=== PATIENT | female | born 1985 | race Caucasian/White ===

== ENCOUNTER 2020-12-13 15:43 | Emergency (ER) | payer OTHER ==
[2020-12-13 17:01] LABS: BASOPHIL 0.2 % (0-2); EOSINOPHIL 0.9 % (0-5); HCT 34.6 % (37.0-47.0); HGB 11.4 g/dl (12.5-16.0); LYMPHOCYTE 17.9 % (15-48); MCH 28.5 pg (25.0-31.0); MCHC 32.9 g/dL (32.0-36.0); MCV 86.5 fL (78.0-100.0); MONOCYTE 5.8 % (0-12); MPV 11.3 fL (6.0-9.5); NEUTROPHIL 72.8 % (41-80); NRBC 0; PLT 166 K/uL (150-400); RDW 13.9 % (11.5-14.0); WBC 10.1 K/uL (4.0-10.5)
[2020-12-13 17:31] LABS: ALBUMIN 2.7 g/dL (3.4-5.0); BILIRUBIN - TOTAL 0.5 mg/dL (0.2-1.0); BUN/CREAT RATIO (CALC) 32.5 RATIO; CREATININE 0.4 mg/dL (0.51-0.95); GLOBULIN (CALCULATION) 3.3 g/dL; POTASSIUM 3.5 mmol/L (3.5-5.1)
[2020-12-13 18:57] LABS: BILIRUBIN NEGATIVE (NEGATIVE); BLOOD NEGATIVE Ery/uL (NEGATIVE); CLARITY CLEAR (CLEAR); COLOR YELLOW (YELLOW); GLUCOSE (U) NORMAL (NORMAL); LEUKOCYTES NEGATIVE Leu/uL (NEGATIVE); NITRITE NEGATIVE (NEGATIVE); PROTEIN NEGATIVE (NEGATIVE); SPECIFIC GRAVITY 1.015 (1.001-1.030); UROBILINOGEN 0.2 mg/dL (0.2-1.0)
[2020-12-13] MEDS ORDERED: FLEXERIL5 MG PO (19:33)
== END 2020-12-13 19:50 | disposition home or self-care (01) ==
LOC: FER 15:43
PROVIDERS: Radiology Radiation Oncology
DX: O99.893 Other specified diseases and conditions complicating puerperium (principal); M54.2 Cervicalgia; M54.9 Dorsalgia, unspecified; O24.419 Gestational diabetes mellitus in pregnancy, unspecified control; Z3A.32 32 weeks gestation of pregnancy; V49.9XXA Car occupant (driver) (passenger) injured in unspecified traffic accident, initial encounter; Y92.410 Unspecified street and highway as the place of occurrence of the external cause
CPT/HCPCS: 36415; 71045; 80053; 81003; 83690; 85025; 86900; 86901

== ENCOUNTER 2021-01-20 08:12 | Inpatient (IN) | payer OTHER ==
[~2021-01-20] VITALS: Ht 165.1 cm; Wt 70.3 kg
[~2021-01-20 08:12] MED LIST: FLEXERIL5 MG PO
[2021-01-20 08:57] LABS: BILIRUBIN NEGATIVE (NEGATIVE); BLOOD 3+ Ery/uL (NEGATIVE); CLARITY CLEAR (CLEAR); COLOR YELLOW (YELLOW); GLUCOSE (U) NORMAL (NORMAL); LEUKOCYTES TRACE Leu/uL (NEGATIVE); NITRITE NEGATIVE (NEGATIVE); PROTEIN TRACE (LOW) mg/dL (NEGATIVE); SPECIFIC GRAVITY >=1.030 (1.001-1.030); UROBILINOGEN 0.2 mg/dL (0.2-1.0)
[2021-01-20 09:11] LABS: URINARY RBC TNTC
[2021-01-20 09:12] LABS: BACTERIA TRACE; URINARY WBC RARE
[2021-01-20 09:38] LABS: HCT 35.7 % (37.0-47.0); HGB 11.9 g/dl (12.5-16.0); MCH 29.2 pg (25.0-31.0); MCHC 33.3 g/dL (32.0-36.0); MCV 87.5 fL (78.0-100.0); MPV 11.6 fL (6.0-9.5); RBC 4.08 M/uL (4.20-5.40); WBC 10.4 K/uL (4.0-10.5)
[2021-01-20 09:56] LABS: ALBUMIN 2.5 g/dL (3.4-5.0); BILIRUBIN - TOTAL 0.7 mg/dL (0.2-1.0); BUN/CREAT RATIO (CALC) 22.7 RATIO; CREATININE 0.44 mg/dL (0.51-0.95); GLOBULIN (CALCULATION) 3.3 g/dL; POTASSIUM 3.8 mmol/L (3.5-5.1); TOTAL PROTEIN 5.8 g/dL (6.4-8.2)
[2021-01-22 05:37] LABS: HCT 27.2 % (37.0-47.0); MCH 29.6 pg (25.0-31.0); MCHC 33.1 g/dL (32.0-36.0); MCV 89.5 fL (78.0-100.0); MPV 10.8 fL (6.0-9.5); RBC 3.04 M/uL (4.20-5.40); RDW 15.2 % (11.5-14.0); WBC 8.4 K/uL (4.0-10.5)
== END 2021-01-23 13:20 | disposition home or self-care (01) | DRG 805 ==
LOC: FOD 08:12 → FOB 08:13 → FOD 09:25 → FOB 09:26
PROVIDERS: ADMIT Obstetrics & Gynecology
PROC: 10E0XZZ Delivery of Products of Conception, External Approach (ICD-10-PCS; principal; 2021-01-21)
DX: O42.013 Preterm premature rupture of membranes, onset of labor within 24 hours of rupture, third trimester (principal); O45.93 Premature separation of placenta, unspecified, third trimester; Z37.0 Single live birth; D62 Acute posthemorrhagic anemia; O24.429 Gestational diabetes mellitus in childbirth, unspecified control; Z20.822 Contact with and (suspected) exposure to COVID-19; Z3A.36 36 weeks gestation of pregnancy; O99.02 Anemia complicating childbirth; K43.9 Ventral hernia without obstruction or gangrene
CPT/HCPCS: 36415; 80053; 81001; 82009; 82947; 84112; 86850; 86900; 86901; J2916; J3370; J7050; J7120; J7121; U0002